=== PATIENT | female | born 1990 | race Caucasian/White ===

== ENCOUNTER 2016-10-26 21:02 | Observation (INO) | payer OTHER ==
--- NOTE | 2016-10-27 02:00 | ED NURSING NOTES ---
Clinical Report - Nurses [facility] [address] [place] [address] 10/26/2016 21:04 Patient: MERLYN BANUELOS TRIAGE Triage time 21:34. Acuity: LEVEL 3. Chief Complaint: ABDOMINAL PAIN and NAUSEA. --21:40 Vipin Hernandez R.N. 21:34 10/26/16. BP: 128/70. HR: 101. RR: 20. O2 saturation: 100%. Temp: 99.1 F. Pain level now 04/09. --21:40 Vipin Hernandez R.N. Weight: 90.7 kg stated. Height/Length: 63 inches Per Patient. BMI: 35.4. --21:38 Vipin Hernandez R.N. Medications None. --21:37 Vipin Hernandez R.N. Allergies Cipro. --21:37 Vipin Hernandez R.N. Keflex. --21:37 Vipin Hernandez R.N. Medication/allergy information source: the patient. --21:40 Vipin Hernandez R.N. History Arrived by private vehicle. Historian: patient. Accompanied by friend. Primary physician (none). This started yesterday. ( Pt came in with abdominal pain, tail bone pain, body aches, fever, nausea.). ( Pt is suppose to be taking a lot of meds, but has not been, per pt.). Treatment MANAGER FINANCE: None. SOCIAL HX: Heavy tobacco smoker (cigarette)- 1 pack per day. Occasional alcohol use; consumes beer occasionally. No drug use. --21:40 Vipin Hernandez R.N. PROBLEMS: Back Pain. PTSD. Bipolar Disorder. Fibromyalgia. --21:36 Vipin Hernandez R.N. Interventions ID band on patient. To treatment room. --21:40 Vipin Hernandez R.N. PHYSICAL ASSESSMENT GENERAL / NEURO / PSYCH: Alert. Oriented X 4. Appears in no acute distress. HEENT: Mucous membranes are pink. RESPIRATORY: Respirations not labored. Breath sounds within normal limits. CVS: Normal sinus rhythm noted. Capillary refill less than 2 seconds. GI / : The patient has had nausea. Abdomen soft and nontender. Bowel sounds within normal limits. Normal genitalia. SKIN: Skin is warm and dry. --21:41 Vipin Hernandez R.N. NURSING PROGRESS NOTES Patient gowned. Two patient identifiers checked. Call light placed in reach. Side rails up x 1. Bed placed in lowest position. Brakes of bed on. --21:41 Vipin Hernandez R.N. 22:32 10/26/2016 Site #1 started via IV in the left antecubital space with an 20g angiocath, with aseptic technique and good blood return; one attempt. Blood drawn: rainbow set. Labeled in the presence of the patient and sent to the lab. Saline lock flushed with 10 mL saline. --22:32 AliM 22:33 10/26/2016 Started bag #1 1000 mL IV Fluids IV NS (Saline); at 999 mL/hr over 1 hour(s) via site #1. Allergies verified and confirmed 5 rights. IV patency established. IV site checked: no pain, redness, or swelling. IV flushed thoroughly pre- and post-medication administration. Completed per protocol. --22:33 Cj 22:50 10/26/16. BP: 120/58. HR: 108. RR: 16. O2 saturation: 100% on room air. Temp: 98.6 F (oral). Pain level now: 7/10. Additional comments: Patient states pain is atleast a 10 when she moves, but goes back to a 7 when not moving. --22:52 Harpreet Rojas 23:06 10/26/2016 IV Fluids IV NS Discontinued: bag #1 completed. Total amount infused: 1000 mL. IV patency established. IV site checked: no pain, redness, or swelling. IV flushed thoroughly. --23:06 Debbie Hicks ( Patient asked to provide urine sample and assisted up to restroom.). --23:06 Debbie Hicks Patient ID band checked for patient name and birthdate: patient confirmed. Instructions provided to collect clean catch urine and patient verbalized understanding. Clean catch urine collected with return of yellow-colored clear urine; sample sent to lab for urinalysis. Specimen labeled in the presence of the patient. --23:22 Debbie Hicks 00:40 10/27/16. BP: 122/59. HR: 105. RR: 20. O2 saturation: 95% on room air. Temp: 98.9 F (oral). --00:40 Debbie Hicks The patient is sleeping. --00:40 Debbie Hicks 02:03 10/27/2016 Demerol (Meperidine HCl) IVP 12.5 mg given over 1 minute(s) via site #1. Allergies verified and confirmed 5 rights. IV patency established. IV site checked: no pain, redness, or swelling. IV flushed thoroughly pre- and post-medication administration. IVP given by RN. --02:08 Debbie Hicks 02:08 10/27/2016 PHENERGAN (Promethazine HCl) IVP 12.5 mg given diluted in NS 20mL over 2 minute(s) via site #1. Allergies verified and confirmed 5 rights. IV patency established. IV site checked: no pain, redness, or swelling. IV flushed thoroughly pre- and post-medication administration. IVP given by RN. --02:08 Debbie Hicks 02:17 10/27/2016 Invanz IVP 1 gm given over 30 minute(s) via site #1. Allergies verified and confirmed 5 rights. IV patency established. IV site checked: no pain, redness, or swelling. IV flushed thoroughly pre- and post-medication administration. IVP given by RN. --02:17 Debbie Hicks 02:22 10/27/16. BP: 100/60. HR: 98. RR: 20. O2 saturation: 98% on room air. Temp: 98 F (oral). Pain level now: 04/09. --02:22 Debbie Hicks 23:05 10/26/2016 IV Fluids IV NS Bag Change: bag #1 completed. Total amount infused: 1000. STARTED bag #2 at 200 mL/hr via IV pump. Confirmed 5 rights. IV patency established. IV site checked: no pain, redness, or swelling. IV flushed thoroughly. --02:25 Debbie Hicks 23:10 10/26/2016 Started bag #2 1000 mL IV Fluids IV NS (Saline); at 200 mL/hr over 2 hour(s) via site #1 via IV pump. Allergies verified and confirmed 5 rights. IV patency established. IV site checked: no pain, redness, or swelling. IV flushed thoroughly pre- and post-medication administration. --02:26 Debbie Hicks 02:10 10/27/2016 IV Fluids IV NS Discontinued: bag #2 discontinued. Total amount infused: 400 mL. IV patency established. IV site checked: no pain, redness, or swelling. IV flushed thoroughly. --02:26 Debbie Hicks 02:48 10/27/2016 Demerol (Meperidine HCl) IVP 12.5 mg given over 1 minute(s) via site #1. Allergies verified and confirmed 5 rights. IV patency established. IV site checked: no pain, redness, or swelling. IV flushed thoroughly pre- and post-medication administration. IVP given by RN. --02:48 Debbie Hicks 02:48 10/27/2016 PHENERGAN (Promethazine HCl) IVP 12.5 mg given diluted in NS 20mL over 2 minute(s) via site #1. Allergies verified and confirmed 5 rights. IV patency established. IV site checked: no pain, redness, or swelling. IV flushed thoroughly pre- and post-medication administration. IVP given by RN. --:48 Debbie Hicks. DISPOSITION / DISCHARGE Report was given to a nurse via a phone call. Report included patient's care, treatment, medications, reviewed medication reconcilliation, and condition (including any recent changes or anticipated changes). All questions were answered. Report was acknowledged and care was transferred. (Simone POND). --02:34 Debbie Hicks 02:34 10/27/16. ( Dr. Bell at bedside discussing plan of care with patient). --02:34 Dbebie Hicks 02:55 10/27/16. BP: 110/66. HR: 98. RR: 20. O2 saturation: 95% on room air. Temp: 98 F (oral). Pain level now: 02/07. --02:56 Debbie Hicks Condition at departure: stable. Transported via stretcher by [employer]. Patient's personal items include: shirt, pants, purse and cell phone; items were placed in belongings bag and transported with the patient. --02:56 Debbie Hicks 02:56 10/27/2016 Site #[address] upon admission; patent, no pain and no signs of infection or infiltration. Converted to saline lock and flushed with 10 mL saline; flushes easily. --:56 Debbie Hicks. Locked/Released at 10/27/2016 3:05 by Debbie Hicks,
--- NOTE | 2016-10-27 02:00 | ED ORDER SUMMARY ---
..... Patient: MERLYN BANUELOS OrderSheet [facility] VisitID: [id number] [address] [place] [address] 26y, F Registration Date/Time: 10/26/2016 ORDER SHEET Weight: 90.7 kg (stated) Allergies: Cipro, Keflex GENERAL ORDERS: Chest 2V Urgent (22:13 10/26/2016 Ariella SIDHU) (Ack 22:19 Casandra) (23:45 RFay) Abdomen 1V Upright Urgent (22:14 10/26/2016 Ariella SIDHU) (Ack 22:19 Casandra) (23:45 RFay) CBC w Diff Urgent (22:15 10/26/2016 Ariella SIDHU) (Ack 22:18 Casandra) (22:45 AMcKenna) CMP Urgent (22:15 10/26/2016 Ariella SIDHU) (Ack 22:19 Casandra) (23:05 HSoule) UA-Culture if indicated Urgent (22:15 10/26/2016 Ariella SIDHU) (Ack 22:19 Casandra) (0:25 HSoule) Amylase Urgent (22:15 10/26/2016 Ariella SIDHU) (Ack 22:19 Casandra) (23:05 HSoule) Lipase Urgent (22:15 10/26/2016 Ariella SIDHU) (Ack 22:19 Casandra) (23:05 HSoule) Urine Urgent (22:15 10/26/2016 Ariella SIDHU) (Ack 22:19 Casandra) (0:25 HSoule) Urine Drug Screen Urgent (22:15 10/26/2016 Ariella SIDHU) (Ack 22:19 Casandra) (0:25 HSoule) CT Abd/Pel w Cont (No) (N/A) Urgent (00:25 10/27/2016 Ariella SIDHU) (Ack 0:27 Casandra) (1:17 RFay) CRP Urgent (01:25 10/27/2016 Ariella SIDHU) (Ack 1:28 Casandra) (1:47 HSoule) MEDICATION ORDERS: Phenergan IV 12.5 mg (NOW) (01:51 10/27/2016 Ariella SIDHU) (Ack 1:55 HSoule) (2:08 HSoule) Phenergan IV 12.5 mg (NOW) (02:39 10/27/2016 Ariella SIDHU) (2:48 HSoule) IV FLUIDS: IV NS : initial bolus 1000 mL (1000 mL/hr), then 200 mL/hr for 2h (NOW); Routine (22:14 10/26/2016 Ariella SIDHU) (Ack 22:17 HSoule) (22:33 AMcKenna) Demerol IV 12.5 mg (NOW) (01:51 10/27/2016 Ariella SIDHU) (Ack 1:55 HSoule) (2:08 HSoule) Invanz IV 1 gm/50mL (NOW) (01:51 10/27/2016 Ariella SIDHU) (Ack 1:55 HSoule) (2:17 HSoule) Demerol IV 12.5 mg (NOW) (02:38 10/27/2016 Ariella SIDHU) (2:48 HSoule) ORDER SHEET NOTES: [Electronically signed by Debbie Hicks (03:05 10/27/2016)] [Electronically signed by Shabbir Jim MD (09:42 10/27/2016)] [Electronically locked/signed by Debbie Hicks (03:05 10/27/2016)]
--- NOTE | 2016-10-27 02:00 | ED ORDER SUMMARY ---
..... Patient: MERLYN BANUELOS OrderSheet [facility] VisitID: [id number] [address] [place] [address] 26y, F Registration Date/Time: 10/26/2016 ORDER SHEET Weight: 90.7 kg (stated) Allergies: Cipro, Keflex GENERAL ORDERS: Chest 2V Urgent (22:13 10/26/2016 Ariella SIDHU) (Ack 22:19 Casandra) (23:45 RFay) Abdomen 1V Upright Urgent (22:14 10/26/2016 Ariella SIDHU) (Ack 22:19 Casandra) (23:45 RFay) CBC w Diff Urgent (22:15 10/26/2016 Ariella SIDHU) (Ack 22:18 Casandra) (22:45 AMcKenna) CMP Urgent (22:15 10/26/2016 Ariella SIDHU) (Ack 22:19 Casandra) (23:05 HSoule) UA-Culture if indicated Urgent (22:15 10/26/2016 Ariella SIDHU) (Ack 22:19 Casandra) (0:25 HSoule) Amylase Urgent (22:15 10/26/2016 Ariella SIDHU) (Ack 22:19 Csaandra) (23:05 HSoule) Lipase Urgent (22:15 10/26/2016 Ariella SIDHU) (Ack 22:19 Casandra) (23:05 HSoule) Urine Urgent (22:15 10/26/2016 Ariella SIDHU) (Ack 22:19 Casandra) (0:25 HSoule) Urine Drug Screen Urgent (22:15 10/26/2016 Ariella SIDHU) (Ack 22:19 Casandra) (0:25 HSoule) CT Abd/Pel w Cont (No) (N/A) Urgent (00:25 10/27/2016 Ariella SIDHU) (Ack 0:27 Casandra) (1:17 RFay) CRP Urgent (01:25 10/27/2016 Ariella SIDHU) (Ack 1:28 Casandra) (1:47 HSoule) MEDICATION ORDERS: Phenergan IV 12.5 mg (NOW) (01:51 10/27/2016 Ariella SIDHU) (Ack 1:55 HSoule) (2:08 HSoule) Phenergan IV 12.5 mg (NOW) (02:39 10/27/2016 Ariella SIDHU) (2:48 HSoule) IV FLUIDS: IV NS : initial bolus 1000 mL (1000 mL/hr), then 200 mL/hr for 2h (NOW); Routine (22:14 10/26/2016 Ariella SIDHU) (Ack 22:17 HSoule) (22:33 AMcKenna) Demerol IV 12.5 mg (NOW) (01:51 10/27/2016 Ariella SIDHU) (Ack 1:55 HSoule) (2:08 HSoule) Invanz IV 1 gm/50mL (NOW) (01:51 10/27/2016 Ariella SIDHU) (Ack 1:55 HSoule) (2:17 HSoule) Demerol IV 12.5 mg (NOW) (02:38 10/27/2016 Ariella SIDHU) (2:48 HSoule) ORDER SHEET NOTES: [Electronically signed by Debbie Hicks (03:05 10/27/2016)] [Electronically signed by Shabbir Jim MD (09:42 10/27/2016)] [Electronically locked/signed by Debbie Hicks (03:05 10/27/2016)]
--- NOTE | 2016-10-27 02:00 | ED CLINICAL REPORT ---
Clinical Report - Physicians/Mid Levels [facility] [address] [place] [address] 10/26/2016 21:04 Patient: MERLYN BANUELOS Time Seen: 22:07 Oct 26 2016. Arrived- By private vehicle. Historian- patient. CPT: ER phys charges level 5 (#[id number]). HISTORY OF PRESENT ILLNESS Chief Complaint: ABDOMINAL PAIN and NAUSEA. This started yesterday This started yesterday. ( Pt came in with abdominal pain, tail bone pain, body aches, fever, nausea.). ( Pt is suppose to be taking a lot of meds, but has not been, per pt.). and is still present. It is described as "pain", sharp and cramping and it is described as located in the periumbilical area. At its maximum, severity described as moderate and 8 / 10. When seen in the E.D., severity described as moderate and 8 / 10. Modifying factors. Not worsened by anything. Not relieved by anything. The patient has had nausea and loss of appetite. No vomiting or diarrhea. No recent travel. Similar symptoms previously: As bad. Diagnosis: (Pyelo and GB). Recent medical care: Not recently seen/assessed. REVIEW OF SYSTEMS No constipation, black stools, hematemesis, difficulty with urination or pain with urination. No urinary frequency, fever, sore throat or throat or chest pain. No difficulty breathing, cough, joint pain, skin rash or chills. No back pain, diabetic symptoms or easy bruising. Denies current . Had vomiting and diahrreal illness 5 days ago and that has resolved. All systems otherwise negative, except as recorded above. PAST HISTORY Back Pain. PTSD. Bipolar Disorder. Fibromyalgia. Surgeries: . Cholecystectomy. Medications: None. Allergies: Cipro. Keflex. SOCIAL HISTORY Heavy tobacco smoker (cigarette)- less than 1 pack per day. Occasional alcohol use. No drug use. ADDITIONAL NOTES The nursing notes have been reviewed. PHYSICAL EXAM Vital Signs: 10/26/2016 21:34 BP: 128/70. HR: 101. RR: 20. O2 saturation: 100%. Temp: 99.1 F. Appearance: Alert. Appears to be in pain. Patient in moderate distress. Eyes: Eyes normal inspection. ENT: Ears normal. Nose normal. Pharynx normal. Neck: Normal inspection. Neck supple. CVS: Normal heart rate and rhythm. Heart sounds normal. Pulses normal. Respiratory: No respiratory distress. Breath sounds normal. Chest nontender. Abdomen: Soft. Moderate tenderness in the periumbilical area. Bowel sounds normal. Back: Normal inspection. No CVA tenderness. Skin: Skin warm. Normal skin color. No rash. Extremities: Extremities exhibit normal ROM. No lower extremity edema. Neuro: Oriented X 3. No motor deficit. No sensory deficit. Reflexes normal. LABS, X-RAYS, AND EKG Abdominal CT: Appendix normal. But there is a small amount of fat stranding in the periappendiceal location. Cannot exclud a developing appendicitis. Study type: abdomen and pelvis. Abdominal CT performed with IV contrast. The study was independently viewed by me and interpreted by the radiologist. Interpretation time: 01:48 Oct 27 2016. Laboratory Tests: UA-Culture if indicated: (CLAY: 10/26/2016 23:20) ( MsgRcvd 10/26/2016 23:38) Final results Test Result Flag Units (Reference) URINE COLOR YELLOW URINE APPEARANCE SLIGHTLY HAZY URINE GLUCOSE NEGATIVE (NEGATIVE) URINE BILIRUBIN NEGATIVE (NEGATIVE) URINE KETONE NEGATIVE (NEGATIVE) URINE SPECIFIC GRAVITY >= 1.030 (1.010-1.030) URINE PH 6.0 (5.0-8.0) URINE PROTEIN NEGATIVE (NEGATIVE) URINE UROBILINOGEN 0.2 EU/dL (0.2-1.0) URINE NITRITE NEGATIVE (NEGATIVE) URINE BLOOD 2+ (NEGATIVE) URINE LEUK ESTERASE NEGATIVE (NEGATIVE) URINE RBC 5-10 rbc/hpf (0-1) URINE WBC 1-3 wbc/hpf (0-1) URINE EPITHELIAL CELLS 1-3 EPI/hpf (0-5) URINE BACTERIA FEW (1+) (NONE SEEN) URINE COMMENT CULT NOT INDICATED 2+ MUCUSURINE CULTURES ARE SET-UP BASED ON THE FOLLOWING CRITERIA:POSITIVE NITRITEPOSITIVE LEUKOCYTE ESTERASEGREATER THAN 10 WHITE BLOOD CELLSMODERATE (2+) OR GREATER BACTERIA Urine: (CLAY: 10/26/2016 23:20) ( MsgRcvd 10/26/2016 23:32) Final results Test Result Flag Units (Reference) URINE NEGATIVE CBC w Diff: (CLAY: 10/26/2016 22:09) ( NegRcvd 10/26/2016 22:58) Final results Test Result Flag Units (Reference) WHITE BLOOD COUNT 10.0 K/uL (4.5-11.5) RED BLOOD COUNT 4.28 M/uL (4.00-5.20) HEMOGLOBIN 13.1 gm/dL (12.0-16.0) HEMATOCRIT 38.9 % (36.0-46.0) MEAN CELL VOLUME 91 fL (80-100) MEAN CORPUSCULAR HGB 31 pg (26-34) MEAN CORPUSCULAR HGB CONC 34 g/dL (31-37) RED CELL DISTRIBUTION WIDTH 13.5 % (11.6-14.8) PLATELET COUNT 213 K/uL (150-400) NEUTROPHIL % 77.1 H % (50-75) LYMPH % 15.6 L % (25-40) MONO % 6.5 % (3-14) EOSINOPHIL % 0.6 % (0-4) BASOPHIL % 0.2 % (0-2) Urine Drug Screen: (CLAY: 10/26/2016 23:20) ( MsgRcvd 10/26/2016 23:46) Final results Test Result Flag Units (Reference) AMPHETAMINE/METHAMPHETAMINE POSITIVE H (NEGATIVE) BARBITURATE NEGATIVE (NEGATIVE) BENZODIAZEPINE NEGATIVE (NEGATIVE) CANNABINOID NEGATIVE (NEGATIVE) COCAINE NEGATIVE (NEGATIVE) ECSTASY NEGATIVE (NEGATIVE) METHADONE NEGATIVE (NEGATIVE) OPIATE NEGATIVE (NEGATIVE) The urine drug screen is a qualitative screening test fordrug overdose and abuse. All screen results should beconsidered as presumptive.Drugs screened for are as follows:BenzodiazepinesCocaineAmphetamines/MetamphetaminesTHC (Tetrahydrocannabinol)OpiatesBarbituratesEcstasyMethadonePositive results are unconfirmed. For confirmation, notifythe lab for the specimen to be sent to the reference lab.All confirmations must be performed by a differentmethodology.The ingestion of natural herbal and plant productscontaining Ephedra/Ephedra metabolites can produce in urineone or more substances capable of cross reacting withamphetamine/methamphetamine immunoassays. These testsprovide a preliminary result only. A more specificalternative chemical method must be used to obtain aconfirmed analytical result. CMP: (CLAY: 10/26/2016 22:09) ( MsgRcvd 10/26/2016 23:11) Final results Test Result Flag Units (Reference) GLUCOSE 90 mg/dL (70-110) BUN 10 mg/dL (7-18) CREATININE 0.6 mg/dL (0.6-1.3) Estimated GFR >60 mL/min Estimated GFR- >60 mL/min Note: Persistent reduction over 3 months in eGFR<60 mL/min/1.73 m2 defines CKD. Patients with eGFR values>=60 mL/min/1.73 m2 may also have CKD if evidence ofpersistent proteinuria. Additional information may be foundat www.kidney.org. SODIUM 138 mmol/L (136-145) POTASSIUM 3.8 mmol/L (3.5-5.1) CHLORIDE 102 mmol/L (98-107) CARBON DIOXIDE 25 mmol/L (21-32) CALCIUM 8.6 mg/dL (8.5-10.1) TOTAL PROTEIN 7.0 g/dL (6.4-8.2) ALBUMIN 3.7 g/dL (3.3-5.0) BILIRUBIN, TOTAL 0.5 mg/dL (0.0-1.0) ALKALINE PHOSPHATASE 67 U/L (46-116) AST (SGOT) 15 U/L (15-37) ALT (SGPT) 20 U/L (12-78) LIPASE 97 U/L (73-393) AMYLASE 23 L U/L (25-115) . PROGRESS AND PROCEDURES Course of Care: 00:23 10/27/16. Pt indicates that the pain is severe and she has not had this much pain except when she had pyelo and GB sx. No specific findings to explain pain. Does not appear peritoneal on exam . Will check CT to r/o significant pathology. Discussed case with on-call health care provider, (Juanis). Reviewed test results. Agreed upon treatment plan. Health care provider will see patient in ED. Patient/family counseled. Disposition orders written. Disposition: Admitted to Acute Care. CLINICAL IMPRESSION Acute appendicitis with localized peritonitis. Substance abuse problems: abuse of methamphetamine. Substance dependence problems: dependence on methamphetamine. (Electronically signed by Shabbir Jim MD 10/27/2016 9:42)
[2016-10-27 03:49] VITALS: BP 96/45
--- NOTE | 2016-10-27 05:42 | DIAGNOSTIC IMAGING REPORT ---
PROCEDURE: XR CHEST 2 VIEW INDICATION: FEVER TECHNIQUE: PA and lateral views. COMPARISON: None. FINDINGS: Allowing for suboptimal inspiration, lungs are clear. Heart and mediastinum are normal. Thorax is normal. IMPRESSION: 1. Negative chest.
--- NOTE | 2016-10-27 06:47 | HISTORY AND PHYSICAL ---
ADMITTED: 10/27/2016 CHIEF COMPLAINT: 1. Body aches 2. Fever 3. Abdominal pain HISTORY OF PRESENT ILLNESS: The patient is a 26-year-old female who presented to the emergency department with diffuse body aches, fevers, not feeling well, and with some abdominal pain. She had a temperature of 103 at home and the symptoms have been going on for the last 2-3 days. She has generally not felt well and here for further evaluation. In the emergency department, the workup included a CT of her abdomen which showed some periappendiceal stranding with possible early appendicitis and with her abdominal pain in the right lower abdomen, the decision is made for admission for appendicitis and consultation to general surgery for possible appendicitis. MEDICAL/SURGICAL HISTORY: Past medical history: She has had bipolar, fibromyalgia, PTSD, chronic back pain, depression. Past surgical history: She has had a , tonsillectomy and gallbladder surgery. MEDICATIONS: 1. [employer] 2. Lyrica 3. Alprazolam. All of her medications, she is not sure of her dosing as well as she stopped taking over a couple weeks ago and is currently in between doctors. ALLERGIES: 1. CIPRO. 2. KEFLEX. SOCIAL HISTORY: She is currently with her significant other in the emergency department. She smokes about 8 cigarettes per day. She drinks some alcohol. She also has a history of drug use, last heroin use was about 10 years ago. She just recently relapsed on methadone, she states. FAMILY HISTORY: Mom had Graves disease. Father is "a douche" REVIEW OF SYSTEMS: She has had body aches She has had a little bit of a sore throat. No cough or sneezing. She has had abdominal discomfort as well, mostly in the right lower back as well as her right lower abdomen. LAB/IMAGING: A CBC with differential shows a white count 10.0, hematocrit 38.9, and platelets of 213. Comprehensive metabolic panel is totally normal. Lipase of 97, amylase of 23, creatinine is 0.6. All LFTs are normal. Urinalysis is with 2+ blood, otherwise negative, specific gravity 1030, one to three white cells. Urine negative. Urine drug screen shows positive for amphetamines, otherwise negative. C- reactive protein of 6.6. A CT of the abdomen shows a normal-appearing appendix; however, there is small amount of fat stranding the periappendiceal location, consider developing appendicitis. IMPRESSION: 1. This is a 26-year-old female who presents to the emergency department with chronic medical problems and mostly mental illness related with posttraumatic stress disorder. 2. Bipolar 3. Fibromyalgia 4. Chronic back pain 5. Depression 6. Abdominal pain and diffuse aches 7. Fever 8. CT concerning for possible early appendicitis PLAN: Admission to the hospital and will have surgical evaluation and go from there. We will order a flu screen as she has a little bit of a sore throat and fever and body aches just in case.
[2016-10-27 06:53] VITALS: BP 111/64
--- NOTE | 2016-10-27 06:56 | DIAGNOSTIC IMAGING REPORT ---
PROCEDURE: CT ABD/PELVIS WITH CONTRAST INDICATION: Abdominal pain. TECHNIQUE: Initially 48 ml of Isovue 300 was injected. The patient complained of some mild arm discomfort and was evaluated by emergency room nursing personnel and felt that the IV was functioning properly. Because of this, 125 ml of Isovue 300 was injected intravenously and axial images were obtained of the entire abdomen and pelvis with sagittal and coronal reformations. Preliminary poor provided by Rosa Harvey MD ([facility]). COMPARISON: Comparison is made abdominal radiograph earlier in the day. FINDINGS: ABDOMEN: There are mildly prominent fluid-filled small bowel loops in left lower abdomen. Bowel pattern is otherwise normal. Retrocecal appendix appears normal (minimal indistinctness of periappendiceal tissues is nonspecific). Cholecystectomy (surgical clips). There is a small amount of air in the biliary tree (suggests prior sphincterotomy). Liver, spleen (13 cm), pancreas, kidneys, and aorta are normal. Bowel pattern is normal, including appendix. PELVIS: Uterus and adnexal structures are normal. No evidence of free fluid. IMPRESSION: 1. Status post cholecystectomy. 2. Small amount of biliary air suggest prior sphincterotomy. 3. Mildly prominent small bowel loops in the left lower abdomen. While findings are nonspecific, considered developing enteritis or ileus. 4. Preliminary report provided to Dr. Jim. Findings subsequently discussed with Dr. Jim (Dr. Mcmahan). 4. Findings called to Dr. Prescott (Dr. Mcmahan). All CT scans at this facility use dose modulation, iterative reconstruction, and/or weight-based dosing when appropriate to reduce radiation dose to as low as reasonably achievable.
--- NOTE | 2016-10-27 06:59 | DIAGNOSTIC IMAGING REPORT ---
PROCEDURE: XR ABDOMEN 1 VIEW UPRIGHT INDICATION: ABDOMINAL PAIN TECHNIQUE: AP upright view. COMPARISON: None. FINDINGS: Bowel pattern is normal. No evidence of free air. Status post cholecystectomy (surgical clips). Small amount of biliary air. Soft tissues and osseous structures are normal. External metal densities overlying the lower abdomen. IMPRESSION: 1. Status post cholecystectomy. 2. Small amount of biliary suggest prior sphincterotomy. 3. Otherwise negative abdomen.
--- NOTE | 2016-10-27 09:43 | ED MED RECONCILIATION SUMMARY ---
Patient: MERLYN BANUELOS Medication Reconciliation Report [facility] VisitID: [id number] [address] [place] [address] 26y, F Registration Date/Time: 10/26/2016 Weight: 90.7 kg Height/Length: 63 in. BMI: 35.4 ALLERGIES: Cipro, Keflex The patient's Home Medications are listed below: NONE. The source(s) of the original Home Medication information: patient The following Medications were given to the patient in the Emergency Department: IV NS IV Fluids bolus 0, then 999 mL/hr, administered: 10/26/2016 10:33:00 PM Demerol [IVP] IVP 12.5 mg, administered: 10/27/2016 2:03:00 AM PHENERGAN [IVP] IVP 12.5 mg diluted in NS 20 mL, administered: 10/27/2016 2:08:00 AM Invanz [IVP] IVP 1 gm, administered: 10/27/2016 2:17:00 AM IV NS IV Fluids bolus 0, then 200 mL/hr, administered: 10/26/2016 11:10:00 PM Demerol [IVP] IVP 12.5 mg, administered: 10/27/2016 2:48:00 AM PHENERGAN [IVP] IVP 12.5 mg diluted in NS 20 mL, administered: 10/27/2016 2:48:00 AM The following Medications were prescribed to the patient: None.
--- NOTE | 2016-10-27 09:43 | ED DISCHARGE INSTRUCTIONS ---
Patient: MERLYN BANUELOS General Instructions [facility] VisitID: [id number] [address] [place] [address] 26y, F Registration Date/Time: 10/26/2016 Acute appendicitis with localized peritonitis. Substance abuse problems: abuse of methamphetamine. Substance dependence problems: dependence on methamphetamine. (Electronically signed by Shabbir Jim MD 10/27/2016 9:42)
--- NOTE | 2016-10-27 09:43 | ED MED RECONCILIATION SUMMARY ---
Patient: MERLYN BANUELOS Medication Reconciliation Report [facility] VisitID: [id number] [address] [place] [address] 26y, F Registration Date/Time: 10/26/2016 Weight: 90.7 kg Height/Length: 63 in. BMI: 35.4 ALLERGIES: Cipro, Keflex The patient's Home Medications are listed below: NONE. The source(s) of the original Home Medication information: patient The following Medications were given to the patient in the Emergency Department: IV NS IV Fluids bolus 0, then 999 mL/hr, administered: 10/26/2016 10:33:00 PM Demerol [IVP] IVP 12.5 mg, administered: 10/27/2016 2:03:00 AM PHENERGAN [IVP] IVP 12.5 mg diluted in NS 20 mL, administered: 10/27/2016 2:08:00 AM Invanz [IVP] IVP 1 gm, administered: 10/27/2016 2:17:00 AM IV NS IV Fluids bolus 0, then 200 mL/hr, administered: 10/26/2016 11:10:00 PM Demerol [IVP] IVP 12.5 mg, administered: 10/27/2016 2:48:00 AM PHENERGAN [IVP] IVP 12.5 mg diluted in NS 20 mL, administered: 10/27/2016 2:48:00 AM The following Medications were prescribed to the patient: None.
--- NOTE | 2016-10-27 09:43 | ED MAR SUMMARY ---
..... Medication Administration Record [facility] [address] [place] [address] Patient: MERLYN BANUELOS Visit ID: [id number] 26y, F Weight: 90.7 kg Height/Length: 63 in BMI: 35.4 ALLERGIES: Keflex, Cipro Start 22:33 10/26/2016 Cj,, Stop 23:06 10/26/2016 Debbie Hicks, Medication Administered: IV NS (SALINE), Dose: IV Fluids over 1 hour(s), Rate: 999 mL/hr, Dispensed: 1000 mL bag, Site: #1 left AC. Medication Ordered: IV NS : initial bolus 1000 mL (1000 mL/hr), then 200 mL/hr for 2h (NOW); Routine. Start 23:10 10/26/2016 Debbie Hicks,, Stop 02:10 10/27/2016 Debbie Hicks, Medication Administered: IV NS (SALINE), Dose: IV Fluids over 2 hour(s), Rate: 200 mL/hr, Dispensed: 1000 mL bag, Site: #1 left AC. Medication Ordered: IV NS : initial bolus 1000 mL (1000 mL/hr), then 200 mL/hr for 2h (NOW); Routine. Given 02:03 10/27/2016 Debbie Hicks, Medication Administered: DEMEROL [IVP] (MEPERIDINE HCL), Dose: 12.5 mg IVP over 1 minute(s), Site: #1 left AC. Medication Ordered: Demerol IV 12.5 mg (NOW). Given 02:08 10/27/2016 Debbie Hicks, Medication Administered: PHENERGAN [IVP] (PROMETHAZINE HCL), Dose: 12.5 mg IVP over 2 minute(s), In: NS 20 mL, Site: #1 left AC. Medication Ordered: Phenergan IV 12.5 mg (NOW). Given 02:17 10/27/2016 Debbie Hicks, Medication Administered: INVANZ [IVP], Dose: 1 gm IVP over 30 minute(s), Site: #1 left AC. Medication Ordered: Invanz IV 1 gm/50mL (NOW). Given 02:48 10/27/2016 Debbie Hicks, Medication Administered: DEMEROL [IVP] (MEPERIDINE HCL), Dose: 12.5 mg IVP over 1 minute(s), Site: #1 left AC. Medication Ordered: Demerol IV 12.5 mg (NOW). Given 02:48 10/27/2016 Debbie Hicks, Medication Administered: PHENERGAN [IVP] (PROMETHAZINE HCL), Dose: 12.5 mg IVP over 2 minute(s), In: NS 20 mL, Site: #1 left AC. Medication Ordered: Phenergan IV 12.5 mg (NOW).
--- NOTE | 2016-10-27 09:43 | ED DISCHARGE INSTRUCTIONS ---
Patient: MERLYN BANUELOS General Instructions [facility] VisitID: [id number] [address] [place] [address] 26y, F Registration Date/Time: 10/26/2016 Acute appendicitis with localized peritonitis. Substance abuse problems: abuse of methamphetamine. Substance dependence problems: dependence on methamphetamine. (Electronically signed by Shabbir Jim MD 10/27/2016 9:42)
--- NOTE | 2016-10-27 09:43 | ED MAR SUMMARY ---
..... Medication Administration Record [facility] [address] [place] [address] Patient: MERLYN BANUELOS Visit ID: [id number] 26y, F Weight: 90.7 kg Height/Length: 63 in BMI: 35.4 ALLERGIES: Keflex, Cipro Start 22:33 10/26/2016 Cj,, Stop 23:06 10/26/2016 Debbie Hicks, Medication Administered: IV NS (SALINE), Dose: IV Fluids over 1 hour(s), Rate: 999 mL/hr, Dispensed: 1000 mL bag, Site: #1 left AC. Medication Ordered: IV NS : initial bolus 1000 mL (1000 mL/hr), then 200 mL/hr for 2h (NOW); Routine. Start 23:10 10/26/2016 Debbie Hicks,, Stop 02:10 10/27/2016 Debbie Hicks, Medication Administered: IV NS (SALINE), Dose: IV Fluids over 2 hour(s), Rate: 200 mL/hr, Dispensed: 1000 mL bag, Site: #1 left AC. Medication Ordered: IV NS : initial bolus 1000 mL (1000 mL/hr), then 200 mL/hr for 2h (NOW); Routine. Given 02:03 10/27/2016 Debbie Hicks, Medication Administered: DEMEROL [IVP] (MEPERIDINE HCL), Dose: 12.5 mg IVP over 1 minute(s), Site: #1 left AC. Medication Ordered: Demerol IV 12.5 mg (NOW). Given 02:08 10/27/2016 Debbie Hicks, Medication Administered: PHENERGAN [IVP] (PROMETHAZINE HCL), Dose: 12.5 mg IVP over 2 minute(s), In: NS 20 mL, Site: #1 left AC. Medication Ordered: Phenergan IV 12.5 mg (NOW). Given 02:17 10/27/2016 Debbie Hicks, Medication Administered: INVANZ [IVP], Dose: 1 gm IVP over 30 minute(s), Site: #1 left AC. Medication Ordered: Invanz IV 1 gm/50mL (NOW). Given 02:48 10/27/2016 Debbie Hicks, Medication Administered: DEMEROL [IVP] (MEPERIDINE HCL), Dose: 12.5 mg IVP over 1 minute(s), Site: #1 left AC. Medication Ordered: Demerol IV 12.5 mg (NOW). Given 02:48 10/27/2016 Debbie Hicks, Medication Administered: PHENERGAN [IVP] (PROMETHAZINE HCL), Dose: 12.5 mg IVP over 2 minute(s), In: NS 20 mL, Site: #1 left AC. Medication Ordered: Phenergan IV 12.5 mg (NOW).
[2016-10-27 09:58] VITALS: BP 118/73
--- NOTE | 2016-10-27 10:42 | Provider's Discharge Care Plan ---
Problem, Goal, Plan Problem List 1. Influenza B Instructions: Take meds as directed, Please continue tamiflu for the full course. Drink plenty of fluids and get plenty of rest. If you develop worsening symptoms, or if you have vomiting and are not able to eat, please return to the ER.
[2016-10-27] MEDS ORDERED: TAMIFLU75 MG PO (10:44)
--- NOTE | 2016-10-27 10:54 | Discharge Summary ---
Discharge Summary Report Admit Date 10/27/16 Discharge Date 10/27/16 Admission Diagnosis Concern for appendicitis Discharge Diagnosis Influenza B w/ likely enteritis Ruled out for appendicitis Brief History Per H&P by admitting physician: 26-year-old female who presented to the emergency department with diffuse body aches, fevers, not feeling well, and with some abdominal pain. She had a temperature of 103 at home and the symptoms have been going on for the last 2-3 days. She has generally not felt well and here for further evaluation. In the emergency department, the workup included a CT of her abdomen which showed some periappendiceal stranding with possible early appendicitis and with her abdominal pain in the right lower abdomen, the decision is made for admission for appendicitis and consultation to general surgery for possible appendicitis. Hospital Course Patient was admitted for concern of appendicitis based on the CT results. She was given a dose of ertapenem in the ER. General surgery came to evaluate her and reviewed the CT. He did not feel that this was c/w appendicitis, and thought it was likely enteritis vs ileus. Because of her generalized symptoms, an influenza swab was sent, which came back positive for influenza B. She was started on tamiflu as she was still within the 72hrs of symptom onset. She was started on a clear diet, and if she tolerates a soft diet later today, will d/c home. She can use tylenol or motrin as needed for pain and fevers. She can continue the tamiflu for a full 5 day course. General Appearance Alert, Oriented X3, Cooperative, Uncomfortable from fever, but no acute cardiopulmonary distress. HEENT Mucous membran moist/pink Lungs Clear to auscultation Cardiovascular Regular Rate, Normal S1, Normal S2, No murmurs Abdomen Normal bowel sounds, Soft, tender throughout to palpation w/o rebound or guarding Skin No Rashes Neurological Nonfocal Psych/Mental Status Mental status NL Lab/Imaging Laboratory Tests 10/27 10/26 10/26 10/26 UNK 2320 2320 2209 Chemistry Plasma Sodium (136 - 145 mmol/L) 138 Plasma Potassium (3.5 - 5.1 mmol/L) 3.8 Plasma Chloride (98 - 107 mmol/L) 102 CO2 (Enzymatic) (21 - 32 mmol/L) 25 BUN (7 - 18 mg/dL) 10 Creatinine (0.6 - 1.3 mg/dL) 0.6 Est GFR ( Amer) (mL/min) >60 Est GFR (Non-Af Amer) (mL/min) >60 Glucose (70 - 110 mg/dL) 90 Plasma Calcium (8.5 - 10.1 mg/dL) 8.6 Total Bilirubin (0.0 - 1.0 mg/dL) 0.5 AST (15 - 37 U/L) 15 ALT (12 - 78 U/L) 20 Alkaline Phosphatase (46 - 116 U/L) 67 C-Reactive Protein (0.0 - 0.9 mg/dL) 6.6 Total Protein (6.4 - 8.2 g/dL) 7.0 Albumin (3.3 - 5.0 g/dL) 3.7 Amylase (25 - 115 U/L) 23 Lipase (73 - 393 U/L) 97 Hematology WBC (4.5 - 11.5 K/uL) 10.0 RBC (4.00 - 5.20 M/uL) 4.28 Hgb (12.0 - 16.0 gm/dL) 13.1 Hct (36.0 - 46.0 %) 38.9 MCV (80 - 100 fL) 91 MCH (26 - 34 pg) 31 RDW (11.6 - 14.8 %) 13.5 Neut % (Auto) (50 - 75 %) 77.1 Lymph % (Auto) (25 - 40 %) 15.6 Redwood % (Auto) (3 - 14 %) 6.5 Eos % (Auto) (0 - 4 %) 0.6 Baso % (Auto) (0 - 2 %) 0.2 Plt Count, EDTA (150 - 400 K/uL) 213 PUBS MCHC (31 - 37 g/dL) 34 Toxicology Urine Opiates Screen (NEGATIVE) NEGATIVE Urine Methadone Screen (NEGATIVE) NEGATIVE Ur Barbiturates Screen (NEGATIVE) NEGATIVE U Amphetamin/Meth Scrn (NEGATIVE) POSITIVE MDMA (Ecstasy) Screen (NEGATIVE) NEGATIVE U Benzodiazepines Scrn (NEGATIVE) NEGATIVE Urine Cocaine Screen (NEGATIVE) NEGATIVE U Cannabinoids Screen (NEGATIVE) NEGATIVE Urines Urine Color YELLOW Urine Appearance SLIGHTLY HAZY Urine pH (5.0 - 8.0) 6.0 Ur Specific [place] (1.010 - 1.030) >= 1.030 Urine Protein (NEGATIVE) NEGATIVE Urine Ketones (NEGATIVE) NEGATIVE Urine Blood (NEGATIVE) 2+ Urine Nitrite (NEGATIVE) NEGATIVE Urine Bilirubin (NEGATIVE) NEGATIVE Urine Urobilinogen (0.2 - 1.0 EU/dL) 0.2 Ur Leukocyte Esterase (NEGATIVE) NEGATIVE Urine RBC (0 - 1 rbc/hpf) 5-10 Urine WBC (0 - 1 wbc/hpf) 1-3 Ur Epithelial Cells (0 - 5 EPI/hpf) 1-3 Urine Bacteria (NONE SEEN) FEW (1+) Urine Glucose (NEGATIVE) NEGATIVE Urine Test NEGATIVE Urine Comment CULT NOT INDICATED Microbiology Date/Time Procedure - Status Source Growth 10/27 0245 Influenza Screen - COMP NASALPHAR Discharge Instructions/Meds Patient instructed to continue tamiflu and use prn tylenol or motrin for pain and fevers. If her symptoms worsen, she was instructed to return to the ER. E&M Codes Discharge: Observation - All/[id number]
== END 2016-10-27 15:25 | disposition home or self-care (01) ==
LOC: ED SRH 21:02 → ACUTE2 SRH 10-27 02:16 → TRANS SRH 10-27 02:16 → ACUTE2 SRH 10-27 03:49
PROVIDERS: ADMIT Family Medicine
DX: J10.89 Influenza due to other identified influenza virus with other manifestations (principal); R10.13 Epigastric pain; R10.31 Right lower quadrant pain; R11.0 Nausea; Z72.0 Tobacco use; F31.9 Bipolar disorder, unspecified; F43.10 Post-traumatic stress disorder, unspecified; F15.10 Other stimulant abuse, uncomplicated; M79.7 Fibromyalgia
CPT/HCPCS: 29230; 29253; 29259; 29262; 29264; 90004; 90100; 91400; 91585; 92235; 92530; 92760; 92761; 92762; 92763; 92764; 92765; 92766; 92767; 93070; 95059

== ENCOUNTER 2016-11-25 17:36 | Emergency (ER) | payer OTHER ==
[~2016-11-25 17:36] MED LIST: TAMIFLU75 MG PO
--- NOTE | 2016-11-25 19:54 | ED ORDER SUMMARY ---
..... Patient: MERLYN BANUELOS OrderSheet [facility] VisitID: [id number] [place] [address] 26y, F Registration Date/Time: 11/25/2016 ORDER SHEET Weight: 90.7 kg (stated) Allergies: Cipro, Keflex, Penicillin GENERAL ORDERS: CBC w Diff Urgent (17:56 11/25/2016 EKoroleva P.A.-C) (Ack 18:03 LNations ER Tech1) (18:11 EHassan R.N.) CMP Urgent (17:56 11/25/2016 EKoroleva P.A.-C) (Ack 18:03 LNations ER Tech1) (18:11 EHassan R.N.) UA-Culture if indicated Urgent (17:56 11/25/2016 EKoroleva P.A.-C) (Ack 18:03 LNations ER Tech1) (18:18 EHassan R.N.) Urine Urgent (17:56 11/25/2016 EKoroleva P.A.-C) (Ack 18:03 LNations ER Tech1) (18:18 EHassan R.N.) PCT (Procalcitonin) Urgent (17:56 11/25/2016 EKoroleva P.A.-C) (Ack 18:03 LNations ER Tech1) (18:11 EHassan R.N.) Abdomen 1V Upright Urgent (18:58 11/25/2016 EKoroleva P.A.-C) (Ack 19:24 AMcQuoid ER Tech1) (19:38 EHassan R.N.) CT Abd/Pel w Cont (No) (see lab) Urgent (20:08 11/25/2016 EKoroleva P.A.-C) (Ack 20:12 AMcQuoid ER Tech1) (20:26 EHassan R.N.) UA-Culture if indicated Urgent (21:05 11/25/2016 EKoroleva P.A.-C) (Ack 21:07 AMcQuoid ER Tech1) MEDICATION ORDERS: IV FLUIDS: IV NS : initial bolus 1000 mL (1000 mL/hr), then 1000 mL/hr for X1 (NOW); Howard (17:56 11/25/2016 EKoroleva P.A.-C) (18:11 West R.N.) Zofran IV 4 mg (NOW) (17:56 11/25/2016 EKoroleva P.A.-C) (18:11 West Stout.N.) Toradol IV 30 mg (NOW) (18:08 11/25/2016 EKoroleva P.A.-C) (18:19 West R.N.) ORDER SHEET NOTES: [Electronically signed by Dayana ShabazzAPino-Willie (21:06 11/25/2016)] [Electronically signed by Cherelle Mathews R.N. (21:11/25/2016)] [Electronically locked/signed by Cherelle Mathews R.N. (21:11/25/2016)]
--- NOTE | 2016-11-25 19:54 | ED NURSING NOTES ---
Clinical Report - Nurses [facility] [address] [place] [address] 11/25/2016 17:37 Patient: MERLYN BANUELOS TRIAGE Triage time 1736 PM. Acuity: LEVEL 3. Chief Complaint: ABDOMINAL PAIN, NAUSEA and DIARRHEA. Alert. No acute distress. SEPSIS SCREEN: Sepsis Screen. Negative (no infection suspected/documented). --17:57 Cherelle Mathews R.N. 17:48 11/25/16. BP: 139/75. HR: 95. RR: 18. O2 saturation: 100% on room air. Temp: 97.8 F (axillary). --17:57 Cherelle Mathews R.N. late entry - 17:48. --20:11 Cherelle Mathews R.N. 20:11 11/25/16. Temp: 97.3 F (oral). --20:11 Cherelle Mathews R.N. late entry - 17:48 PM. --21:10 Cherelle Mathews R.N. 21:09 11/25/16. Pain level now: 03/09. --21:10 Cherelle Mathews R.N. Weight: 90.7 kg stated. Height/Length: 63 inches Per Patient. BMI: 35.4. --17:48 Cherelle Mathews R.N. Medications None. --17:49 Cherelle Mathews R.N. Allergies Cipro. Keflex. --17:49 Cherelle Mathews R.N. Penicillin. --17:50 Cherelle Mathews R.N. Medication/allergy information source: the patient. --17:57 Cherelle Mathews R.N. History Arrived by private vehicle. Historian: patient. Accompanied by friend. Primary physician (Dr. Rey). ( Pt states being here about 2 weeks ago, was told that she has inflammation of her appendix, since 10/26 pt has been having left/right abdominal pain with flank pain bilateral (more on the flank and abdomen) pt states having nauseous, with diarrhea, fevers and chills. Here to get re-evaluated). Onset. (2 weeks). She has had fever, nausea and abdominal pain. No vomiting, diarrhea or constipation. Last oral intake by patient was today (now-ice cream). 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 PAST MEDICAL HX: Immunizations: up-to-date. Last normal menstrual period- 2 days. Sexual history - sexually active. No contraception. SOCIAL HX: Current every day smoker (cigarette). History of drug use: methamphetamines. Recently used drugs yesterday. No alcohol use. No recent travel. No infectious disease exposure. No known contact with a sick individual. ABUSE ASSESSMENT: No report of abuse. SELF HARM ASSESSMENT: A self harm assessment was performed. The patient answered "no" to the question "Do you have thoughts of harming or killing yourself?" and "Have you recently had thoughts about harming or killing others?". FALL RISK ASSESSMENT: Fall risk assessment completed. No fall risk identified. NUTRITIONAL RISK ASSESSMENT: The nutritional risk assessment revealed no deficiencies. FUNCTIONAL ASSESSMENT: Functional assessment: no impairments noted. LEARNING NEEDS ASSESSMENT: The learning needs assessment revealed no barriers. SKIN INTEGRITY ASSESSMENT: Skin integrity risk assessment completed. No skin integrity risk identified. --17:57 Cherelle Mathews R.N. PROBLEMS: Lifestyle / Substance Problems. Appendicitis. Back Pain. PTSD. Bipolar Disorder. Fibromyalgia. --17:50 Cherelle Mathews R.N. ADDITIONAL SURGERIES: Cholecystectomy. . Tonsillectomy. --17:50 Cherelle Mathews R.N. Interventions ID band on patient. --17:57 Cherelle Mathews R.N. PHYSICAL ASSESSMENT Ambulatory to room. GENERAL / NEURO / PSYCH: Alert. Oriented X 4. Appears in no acute distress. HEENT: Mucous membranes are pink. RESPIRATORY: Respirations not labored. Breath sounds within normal limits. CVS: Capillary refill less than 2 seconds. GI / : The patient has had nausea. Obesity. Abdomen soft. Abdominal tenderness in the right upper quadrant, left upper quadrant and periumbilical area. Guarding present. Guarding present. Bowel sounds within normal limits. SKIN: Skin is warm and dry. --18:00 Cherelle Mathews R.N. NURSING PROGRESS NOTES The initial plan of care for this patient has been created This plan of care was discussed with the patient. Patient gowned. Warming measures: blanket applied. Reassurance given. Two patient identifiers checked. Call light placed in reach. Side rails up x 1. Bed placed in lowest position. Brakes of bed on. --18:00 Cherelle Mathews R.N. 18:11 11/25/2016 Site #1 started via IV in the left antecubital space with an 20g angiocath; one attempt. Blood drawn: rainbow set. Labeled in the presence of the patient and sent to the lab. --18:11 Cherelle Mathews R.N. 18:11 11/25/2016 Started bag #1 1000 mL IV Fluids IV NS (Saline); at 1000 mL/hr over 1 hour(s) via site #1 via dial-a-flow. Allergies verified and confirmed 5 rights. IV patency established. IV site checked: no pain, redness, or swelling. IV flushed thoroughly pre- and post-medication administration. --18:11 Cherelle Mathews R.N. 18:11 11/25/2016 Zofran (Ondansetron HCl) IVP 4 mg given over 2 minute(s) via site #1. Allergies verified and confirmed 5 rights. IV patency established. IV site checked: no pain, redness, or swelling. IV flushed thoroughly pre- and post-medication administration. IVP given by RN. --18:11 Cherelle Mathews R.N. 18:19 11/25/2016 Toradol IVP 30 mg given over 30 second(s) via site #1. Allergies verified and confirmed 5 rights. IV patency established. IV site checked: no pain, redness, or swelling. IV flushed thoroughly pre- and post-medication administration. IVP given by RN. --18:19 Cherelle Mathews R.N. Reassurance given. Reassessment after fluids administered. She is calm and has had no adverse reaction. Overall patient status is the same- she states feels the same. GI / : The patient reports nausea. The patient reports abdominal pain. Call light placed in reach. --19:53 Cherelle Mathews R.N. 19:53 11/25/16. BP: 102/52 (regular adult cuff) taken on the right arm, via an automated monitor, while lying. HR: 78. RR: 16. O2 saturation: 100% on room air. Pain level now: 03/09. --19:53 Cherelle Mathews R.N. ( Pt still complaining of pain, still nauseous, UA sent). --19:54 Cherelle Mathews R.N. 19:01 11/25/2016 IV Fluids IV NS Discontinued: bag #1 infused. Total amount infused: 1000 mL. IV patency established. IV site checked: no pain, redness, or swelling. IV flushed thoroughly. --20:26 Cherelle Mathews R.N. 19:54 11/25/2016 Toradol IVP Response: no adverse reaction symptoms are the same. The patient feels the same. --19:54 Cherelle Mathews R.N. 19:55 11/25/2016 Zofran IVP Response: no adverse reaction symptoms are the same. --19:55 Cherelle Mathews R.N. 20:57 11/25/2016 Site #1 removed upon discharge. Catheter intact. Manual pressure and bandaid applied. --21:07 Cherelle Mathews R.N. DISPOSITION / DISCHARGE Departure time: 2106 PM. Condition at departure: stable. The goals identified in the patient's plan of care were met. No learning barriers present. Discharge instructions provided and reviewed with the patient. Reviewed medication(s) side effects, precautions, dosing and course information. Prescription(s) given to the patient. Activity restrictions (rest) reviewed. Patient verbalized understanding. Written instructions provided in Faroese. No treatment instructions or referrals given to the patient. The patient was discharged by the physician customer service assistant. She was discharged home and accompanied by spouse. She left the Emergency Department ambulatory and via private vehicle. FALL RISK ASSESSMENT: Fall risk assessment completed. No fall risk identified. --21:06 Cherelle Mathews R.N. 21:04 11/25/16. BP: 104/40 taken on the left arm, via an automated monitor, while standing. HR: 96. RR: 18. O2 saturation: 99% on room air. Temp: 98.3 F (oral). Pain level now: 03/09. --21:06 Cherelle Mathews R.N. Locked/Released at 11/25/2016 21:10 by Cherelle Mathews R.N.
--- NOTE | 2016-11-25 19:54 | ED ORDER SUMMARY ---
..... Patient: MERLYN BANUELOS OrderSheet [facility] VisitID: [id number] [place] [address] 26y, F Registration Date/Time: 11/25/2016 ORDER SHEET Weight: 90.7 kg (stated) Allergies: Cipro, Keflex, Penicillin GENERAL ORDERS: CBC w Diff Urgent (17:56 11/25/2016 EKoroleva P.A.-C) (Ack 18:03 LNations ER Tech1) (18:11 EHassan R.N.) CMP Urgent (17:56 11/25/2016 EKoroleva P.A.-C) (Ack 18:03 LNations ER Tech1) (18:11 EHassan R.N.) UA-Culture if indicated Urgent (17:56 11/25/2016 EKoroleva P.A.-C) (Ack 18:03 LNations ER Tech1) (18:18 EHassan R.N.) Urine Urgent (17:56 11/25/2016 EKoroleva P.A.-C) (Ack 18:03 LNations ER Tech1) (18:18 EHassan R.N.) PCT (Procalcitonin) Urgent (17:56 11/25/2016 EKoroleva P.A.-C) (Ack 18:03 LNations ER Tech1) (18:11 EHassan R.N.) Abdomen 1V Upright Urgent (18:58 11/25/2016 EKoroleva P.A.-C) (Ack 19:24 AMcQuoid ER Tech1) (19:38 EHassan R.N.) CT Abd/Pel w Cont (No) (see lab) Urgent (20:08 11/25/2016 EKoroleva P.A.-C) (Ack 20:12 AMcQuoid ER Tech1) (20:26 EHassan R.N.) UA-Culture if indicated Urgent (21:05 11/25/2016 EKoroleva P.A.-C) (Ack 21:07 AMcQuoid ER Tech1) MEDICATION ORDERS: IV FLUIDS: IV NS : initial bolus 1000 mL (1000 mL/hr), then 1000 mL/hr for X1 (NOW); Howard (17:56 11/25/2016 EKoroleva P.A.-C) (18:11 West R.N.) Zofran IV 4 mg (NOW) (17:56 11/25/2016 EKoroleva P.A.-C) (18:11 West Stout.N.) Toradol IV 30 mg (NOW) (18:08 11/25/2016 EKoroleva P.A.-C) (18:19 West R.N.) ORDER SHEET NOTES: [Electronically signed by Dayana ShabazzAPino-Willie (21:06 11/25/2016)] [Electronically signed by Cherelle Mathews R.N. (21:11/25/2016)] [Electronically locked/signed by Cherelle Mathews R.N. (21:11/25/2016)]
--- NOTE | 2016-11-25 19:54 | ED CLINICAL REPORT ---
Clinical Report - Physicians/Mid Levels [facility] [address] [place] [address] 11/25/2016 17:37 [id number] Time Seen: 18:21 Nov 25 2016. Arrived- By private vehicle. Historian- patient. HISTORY OF PRESENT ILLNESS Chief Complaint: ABDOMINAL PAIN. It is described as "pain" and it is described as located in the left abdomen and left lower quadrant. Is still present. No vomiting or diarrhea. (Patient status post appendectomy about 3-4 weeks previously, now reports abdominal panel left-sided over the last 7-10 days. Denies urgency or frequency. Denies any nausea or vomiting or diarrhea. Patient finished her last menses 2 days prior to arrival.). REVIEW OF SYSTEMS No constipation, black stools, difficulty with urination, pain with urination or fever. No chest pain, difficulty breathing or chills. All systems otherwise negative, except as recorded above. SOCIAL HISTORY Smoker- current status unknown. History of IV drug use: methamphetamines. No alcohol use. ADDITIONAL NOTES The nursing notes have been reviewed. PHYSICAL EXAM Vital Signs: 11/25/2016 17:48 BP: 139/75. HR: 95. RR: 18. O2 saturation: 100%. Temp: 97.8 F. Appearance: Alert. No acute distress. No apparent distress. Does not appear to be anxious. Eyes: Eyes normal inspection. Neck: Normal inspection. CVS: Normal heart rate and rhythm. Heart sounds normal. Respiratory: No respiratory distress. Breath sounds normal. No decreased air movement. Abdomen: Mild tenderness in the left side of the abdomen. No scar present. Back: Normal inspection. No CVA tenderness. LABS, X-RAYS, AND EKG KUB: (IMPRESSION: 1. Large amount of ingested material in the stomach. 2. Status post cholecystectomy. 3. Otherwise negative abdomen. Electronically Final signed by:Alexandru Mcmahan MD 11/25/2016 7:56:14 PM). Abdominal CT: IMPRESSION: 1. Moderate ingested material in the stomach. 2. Status post cholecystectomy. 3. Small amount of biliary air suggest prior sphincterotomy. 4. There is a 3 cm left ovarian cyst with a a 1.8 cm right ovarian cyst. No evidence of free fluid. 5. Findings discussed with JAYMIE Ronquillo. All CT scans at this facility use dose modulation, iterative reconstruction, and/or weight-based dosing when appropriate to reduce radiation dose to as low as reasonably achievable. Electronically Final signed by:Alexandru Mcmahan MD 11/25/2016 8:41:07 PM. Laboratory Tests: UA-Culture if indicated: (CLAY: 11/25/2016 18:17) ( [facility] 11/25/2016 18:36) Final results Test Result Flag Units (Reference) URINE COLOR YELLOW URINE APPEARANCE CLEAR URINE GLUCOSE NEGATIVE (NEGATIVE) URINE BILIRUBIN NEGATIVE (NEGATIVE) URINE KETONE NEGATIVE (NEGATIVE) URINE SPECIFIC GRAVITY >= 1.030 (1.010-1.030) URINE PH 5.5 (5.0-8.0) URINE PROTEIN NEGATIVE (NEGATIVE) URINE UROBILINOGEN 0.2 EU/dL (0.2-1.0) URINE NITRITE NEGATIVE (NEGATIVE) URINE BLOOD 2+ (NEGATIVE) URINE LEUK ESTERASE NEGATIVE (NEGATIVE) URINE RBC 1-3 rbc/hpf (0-1) URINE WBC 1-3 wbc/hpf (0-1) URINE EPITHELIAL CELLS >15 EPI/hpf (0-5) URINE BACTERIA FEW (1+) (NONE SEEN) URINE COMMENT CULT NOT INDICATED 1+ MUCOUSURINE CULTURES ARE SET-UP BASED ON THE FOLLOWING CRITERIA:POSITIVE NITRITEPOSITIVE LEUKOCYTE ESTERASEGREATER THAN 10 WHITE BLOOD CELLSMODERATE (2+) OR GREATER BACTERIA Urine: (CLAY: 11/25/2016 18:17) ( [facility] 11/25/2016 18:29) Final results Test Result Flag Units (Reference) URINE NEGATIVE CBC w Diff: (CLAY: 11/25/2016 18:10) ( [facility] 11/25/2016 18:23) Final results Test Result Flag Units (Reference) WHITE BLOOD COUNT 7.9 K/uL (4.5-11.5) RED BLOOD COUNT 4.42 M/uL (4.00-5.20) HEMOGLOBIN 13.3 gm/dL (12.0-16.0) HEMATOCRIT 40.0 % (36.0-46.0) MEAN CELL VOLUME 91 fL (80-100) MEAN CORPUSCULAR HGB 30 pg (26-34) MEAN CORPUSCULAR HGB CONC 33 g/dL (31-37) RED CELL DISTRIBUTION WIDTH 12.7 % (11.6-14.8) PLATELET COUNT 255 K/uL (150-400) NEUTROPHIL % 52.8 % (50-75) LYMPH % 37.1 % (25-40) MONO % 7.5 % (3-14) EOSINOPHIL % 2.0 % (0-4) BASOPHIL % 0.6 % (0-2) [id number]: (CLAY: 11/25/2016 18:10) ( MsgRcvd 11/25/2016 19:01) Final results Test Result Flag Units (Reference) PROCALCITONIN <0.5 ng/mL (0-0.5) PCT Concentration: Interpretation : Risk/option for action PCT <=0.5 ng/mL : Systemic : Low risk forinfection(sepsis): progression to severeis not likely. : systemic infection.Local bacterial : CAUTION-PCT levelsinfection is : below 0.5 ng/mL do notpossible. : exclude an infection,because localizedinfections (withoutsystemic signs) may beassociated with suchlow levels. If PCT ismeasured very earlyafter a bacterialchallenge (usually <6hours), these valuesmay still be low. Inthis case PCT shouldbe re-assessed 6-24hours later. PCT >0.5 and : Systemic infection: Moderate risk for<= 2 ng/mL : (sepsis) is : progression to severepossible, but : systemic infection.other conditions : The patient should beare known to : closely monitoredelevate PCT. : both clinically andby re-assessing PCTwithin 6-24 hours. PCT > 2 ng/mL : Systemic infection: High risk for(sepsis) is likely: progression to severeunless other : systemic infection.causes are known. : PCT >= 10 ng/mL : Important systemic: High likelihood ofinflammatory : severe sepsis orresponse, almost : septic shock.exclusively due to:severe bacterial :sepsis or septic :shock. : CMP: (CLAY: 11/25/2016 18:10) ( MsgRcvd 11/25/2016 18:51) Final results Test Result Flag Units (Reference) GLUCOSE 72 mg/dL (70-110) BUN 17 mg/dL (7-18) CREATININE 0.7 mg/dL (0.6-1.3) Estimated GFR >60 mL/min Estimated GFR- >60 mL/min Note: Persistent reduction over 3 months in eGFR<60 mL/min/1.73 m2 defines CKD. Patients with eGFR values>=60 mL/min/1.73 m2 may also have CKD if evidence ofpersistent proteinuria. Additional information may be foundat www.kidney.org. SODIUM 143 mmol/L (136-145) POTASSIUM 3.6 mmol/L (3.5-5.1) CHLORIDE 107 mmol/L (98-107) CARBON DIOXIDE 27 mmol/L (21-32) CALCIUM 8.7 mg/dL (8.5-10.1) TOTAL PROTEIN 6.9 g/dL (6.4-8.2) ALBUMIN 3.7 g/dL (3.3-5.0) BILIRUBIN, TOTAL 0.2 mg/dL (0.0-1.0) ALKALINE PHOSPHATASE 61 U/L (46-116) AST (SGOT) 15 U/L (15-37) ALT (SGPT) 27 U/L (12-78) . PROGRESS AND PROCEDURES Course of Care: Current patient was here on 26 October, admitted to the hospital, as she had signs of early appendicitis on CT, however her appendix was not removed, she was diagnosed with influenza, and discharged home. At this time she has continued to have the pain, unremarkable lab workup, we'll obtain CT for appendicitis. Ct unremarkable, pt with non surgical abd. stable for d/c. 11/25/2016 20:11 Temp: 97.3 F. 11/25/2016 19:53 BP: 102/52. HR: 78. RR: 16. O2 saturation: 100%. Pain level now: 7/10. Patient is stable. Physical exam findings are improved. Symptoms better. Patient/family counseled. Disposition: Discharged. CLINICAL IMPRESSION Acute abdominal pain of unknown cause. INSTRUCTIONS Drink plenty of fluids. OTC Medications: Take acetaminophen (Tylenol, Datril, etc.) and ibuprofen (Advil, Nuprin, etc.) according to label instructions. Available over the counter. Follow-up: Follow up with your doctor in three days. (Electronically signed by Dayana Shabazz P.A.-C 11/25/2016 21:06)
--- NOTE | 2016-11-25 19:59 | DIAGNOSTIC IMAGING REPORT ---
PROCEDURE: XR ABDOMEN 1 VIEW UPRIGHT INDICATION: ABDOMINAL PAIN TECHNIQUE: AP upright air (two images). COMPARISON: Compared CT abdomen and pelvis on 10/27/2016 and abdominal radiograph (10/26/1978. FINDINGS: Large amount of ingested material in the stomach. Bowel pattern is otherwise normal. No evidence of free air. Status post cholecystectomy. Small amount of intra biliary air (previously documented). Soft tissues and osseous structures are normal. IMPRESSION: 1. Large amount of ingested material in the stomach. 2. Status post cholecystectomy. 3. Otherwise negative abdomen.
--- NOTE | 2016-11-25 20:44 | DIAGNOSTIC IMAGING REPORT ---
PROCEDURE: CT ABD/PELVIS WITH CONTRAST INDICATION: ABDOMINAL PAIN TECHNIQUE: 145 ml of Isovue 300 were injected intravenously and axial images were obtained of the entire abdomen and pelvis with sagittal and coronal reformations. COMPARISON: Comparison is made to radiographs earlier in the day (11/25/2016) and CT abdomen and pelvis on 10/27/2016. FINDINGS: ABDOMEN: Moderate ingested material in the stomach. Bowel pattern is otherwise normal, including appendix. Cholecystectomy (surgical clips). Small amount of intra biliary air (no change). Liver, spleen, pancreas, kidneys, and aorta are normal. PELVIS: Left ovary is enlarged (4.3 cm) secondary to a 3 cm left ovarian cyst. Right ovary is of normal size and contains a 1.8 cm cyst. Uterus is normal. No evidence of free fluid. fluid. IMPRESSION: 1. Moderate ingested material in the stomach. 2. Status post cholecystectomy. 3. Small amount of biliary air suggest prior sphincterotomy. 4. There is a 3 cm left ovarian cyst with a a 1.8 cm right ovarian cyst. No evidence of free fluid. 5. Findings discussed with JAYMIE Ronquillo. All CT scans at this facility use dose modulation, iterative reconstruction, and/or weight-based dosing when appropriate to reduce radiation dose to as low as reasonably achievable.
--- NOTE | 2016-11-25 21:10 | ED MAR SUMMARY ---
..... Medication Administration Record [facility] [address] [place] [place] [address] Patient: MERLYN BANUELOS Visit ID: [id number] 26y, F Weight: 90.7 kg Height/Length: 63 in BMI: 35.4 ALLERGIES: Cipro, Keflex, Penicillin Start 18:11 11/25/2016 Cherelle Mathews R.N., Stop 19:01 11/25/2016 Cherelle Mathews R.N. Medication Administered: IV NS (SALINE), Dose: IV Fluids over 1 hour(s), Rate: 1000 mL/hr, Dispensed: 1000 mL bag, Site: #1 left AC. Medication Ordered: IV NS : initial bolus 1000 mL (1000 mL/hr), then 1000 mL/hr for X1 (NOW); Howard. Given 18:11 11/25/2016 Cherelle Mathews R.N. Medication Administered: ZOFRAN [IVP] (ONDANSETRON HCL), Dose: 4 mg IVP over 2 minute(s), Site: #1 left AC. Medication Ordered: Zofran IV 4 mg (NOW). Given 18:11/25/2016 Cherelle Mathews R.NPino Medication Administered: TORADOL [IVP], Dose: 30 mg IVP over 30 second(s), Site: #1 left AC. Medication Ordered: Toradol IV 30 mg (NOW).
--- NOTE | 2016-11-25 21:10 | ED DISCHARGE INSTRUCTIONS ---
Patient: MERLYN BANUELOS General Instructions [facility] VisitID: [id number] [place] [address] 26y, F Registration Date/Time: 11/25/2016 Acute abdominal pain of unknown cause. INSTRUCTIONS Drink plenty of fluids. OTC Medications: Take acetaminophen (Tylenol, Datril, etc.) and ibuprofen (Advil, Nuprin, etc.) according to label instructions. Available over the counter. Follow-up: Follow up with your doctor in three days. ADDITIONAL INFORMATION Abdominal Pain, Unknown Cause (Female) The exact cause of your abdominal (stomach) pain is not certain. This does not mean that this is something to worry about, or the right tests were not done. Everyone likes to know the exact cause of the problem, but sometimes with abdominal pain, there is no clear-cut cause, and this could be a good thing. The good news is that your symptoms can be treated, and you will feel better. Your condition does not seem serious now; however, sometimes the signs of a serious problem may take more time to appear. For this reason,it is important for you to watch for any new symptoms, problems,or worsening of your condition. Over the next few days, the abdominal pain may come and go, or be continuous. Other common symptoms can include nausea and vomiting. Sometimes it can be difficult to tell if you feel nauseous, you may just feel bad and not associate that feeling with nausea. Constipation, diarrhea, and a fever may go along with the pain. The pain may continue even if treated correctly over the following days. Depending on how things go, sometimes the cause can become clear and may require further or different treatment. Additional evaluations, medications, or tests may be needed. Home care Your health care provider may prescribe medications for pain, symptoms, or an infection. Follow the health care provider's instructions for taking these medications. General care Rest until your next exam. No strenuous activities. Try to find positions that ease discomfort. A small pillow placed on the abdomen may help relieve pain. Something warm on your abdomen (such as a heating pad) may help, but be careful not to burn yourself. Diet Do not force yourself to eat, especially if having cramps, vomiting, or diarrhea. Water is important so you do not get dehydrated. Soup may also be good. Sports drinks may also help, especially if they are not too acidic. Make sure you don't drink sugary drinks as this can make things worse. Take liquids in small amounts. Do not guzzle them. Caffeine sometimes makes the pain and cramping worse. Avoid dairy products if you have vomiting or diarrhea. Don't eat large amounts at a time. Wait a few minutes between bites. Eat a diet low in fiber (called a low-residue diet). Foods allowed include refined breads, white rice, fruit and vegetable juices without pulp, tender meats. These foods will pass more easily through the intestine. Avoid whole-grain foods, whole fruits and vegetables, meats, seeds and nuts, fried or fatty foods, dairy, alcohol and spicy foods until your symptoms go away. Follow-up care Follow up with your health care provider as instructed, or if your pain does not begin to improve in the next 24 hours. When to seek medical care Seek prompt medical care if any of the following occur: Pain gets worse or moves to the right lower abdomen New or worsening vomiting or diarrhea Swelling of the abdomen Unable to pass stool for more than three days Fever of 100.4F (38C) or higher, or as directed by your healthcare provider. Blood in vomit or bowel movements (dark red or black color) Jaundice (yellow color of eyes and skin) Weakness, dizziness Chest, arm, back, neck or jaw pain Unexpected vaginal bleeding or missed period Call 911 Call emergency services if any of the following occur: Trouble breathing Confusion Fainting or loss of consciousness Rapid heart rate Seizure Symptoms With Uncertain Cause [Adult] Based on the exam and any tests that were performed today, the exact cause of your symptoms is not certain. While your condition does not seem serious, the signs of a serious problem may take more time to appear. Therefore, it is important for you to watch for any new symptoms or worsening of your condition.Follow up with your doctor or this facility, as directed.A repeat physical exam or additional testing at a later time may uncover a cause for your symptoms that is not evident today. Home Care: Resume your usual activities and diet when this feels comfortable to do so. Follow Up with your doctor, or as advised by our staff.Contact your doctor sooner if your symptoms do not begin to improve in the next few days. [NOTE: If you had an x-ray, CT scan, ultrasound, or ECG (electrocardiogram), it will be reviewed by a specialist. You will be notified of any new findings that may affect your care.] Get Prompt Medical Attention if any of the following occur: Current symptoms get worse New symptoms appear You have been given the following additional information: Abdominal Pain, Unknown Cause, (Female) Symptoms With Uncertain Cause (Electronically signed by Dayana Shabazz P.A.-C 11/25/2016 21:06)
--- NOTE | 2016-11-25 21:10 | ED MED RECONCILIATION SUMMARY ---
Patient: MERLYN BANUELOS Medication Reconciliation Report [facility] VisitID: [id number] [place] [address] 26y, F Registration Date/Time: 11/25/2016 Weight: 90.7 kg Height/Length: 63 in. BMI: 35.4 ALLERGIES: Cipro, Keflex, Penicillin The patient's Home Medications are listed below: NONE. The source(s) of the original Home Medication information: patient The following Medications were given to the patient in the Emergency Department: IV NS IV Fluids bolus 0, then 1000 mL/hr, administered: 11/25/2016 6:11:00 PM Zofran [IVP] IVP 4 mg, administered: 11/25/2016 6:11:00 PM Toradol [IVP] IVP 30 mg, administered: 11/25/2016 6:19:00 PM The following Medications were prescribed to the patient: Take acetaminophen (Tylenol, Datril, etc.) and ibuprofen (Advil, Nuprin, etc.) according to label instructions. Available over the counter. -- Dayana Shabazz PPinoAMarlin
--- NOTE | 2016-11-25 21:10 | ED MAR SUMMARY ---
..... Medication Administration Record [facility] [address] [place] [address] Patient: MERLYN BANUELOS Visit ID: [id number] 26y, F Weight: 90.7 kg Height/Length: 63 in BMI: 35.4 ALLERGIES: Cipro, Keflex, Penicillin Start 18:11 11/25/2016 Cherelle Mathews R.N., Stop 19:01 11/25/2016 Cherelle Mathews R.N. Medication Administered: IV NS (SALINE), Dose: IV Fluids over 1 hour(s), Rate: 1000 mL/hr, Dispensed: 1000 mL bag, Site: #1 left AC. Medication Ordered: IV NS : initial bolus 1000 mL (1000 mL/hr), then 1000 mL/hr for X1 (NOW); Howard. Given 18:11 11/25/2016 Cherelle Mathews R.N. Medication Administered: ZOFRAN [IVP] (ONDANSETRON HCL), Dose: 4 mg IVP over 2 minute(s), Site: #1 left AC. Medication Ordered: Zofran IV 4 mg (NOW). Given 18:11/25/2016 Cherelle Mathews R.NPino Medication Administered: TORADOL [IVP], Dose: 30 mg IVP over 30 second(s), Site: #1 left AC. Medication Ordered: Toradol IV 30 mg (NOW).
--- NOTE | 2016-11-25 21:10 | ED MED RECONCILIATION SUMMARY ---
Patient: MERLYN BANUELOS Medication Reconciliation Report [facility] VisitID: [id number] [place] [address] 26y, F Registration Date/Time: 11/25/2016 Weight: 90.7 kg Height/Length: 63 in. BMI: 35.4 ALLERGIES: Cipro, Keflex, Penicillin The patient's Home Medications are listed below: NONE. The source(s) of the original Home Medication information: patient The following Medications were given to the patient in the Emergency Department: IV NS IV Fluids bolus 0, then 1000 mL/hr, administered: 11/25/2016 6:11:00 PM Zofran [IVP] IVP 4 mg, administered: 11/25/2016 6:11:00 PM Toradol [IVP] IVP 30 mg, administered: 11/25/2016 6:19:00 PM The following Medications were prescribed to the patient: Take acetaminophen (Tylenol, Datril, etc.) and ibuprofen (Advil, Nuprin, etc.) according to label instructions. Available over the counter. -- Dayana Shabazz PPinoAMarlin
== END 2016-11-25 21:07 | disposition home or self-care (01) ==
LOC: ED SRH 17:36
DX: R10.32 Left lower quadrant pain (principal)
CPT/HCPCS: 90004; 90100; 93004; 93070; 95059